=== PATIENT | female | born 1985 | race Caucasian/White ===

== ENCOUNTER 2018-09-11 23:26 | Emergency (ER) | payer OTHER ==
[~2018-09-11] VITALS: Ht 162.6 cm; Wt 77.1 kg
[2018-09-11] MEDS ORDERED: CEPHALEXIN500 MG ORAL (23:51)
[2018-09-11 23:55] VITALS: BP 121/83
--- NOTE | 2018-09-11 23:55 | NUR ---
ER DISCHARGE NOTE: Patient is cleared to be discharged per ERMD, pt is aox4, on room air, with stable vital signs. pt was given dc and prescription instructions, pt was able to verbalize understanding, pt id band removed without complications. pt is able to ambulate with steady gait. pt took all belongings.
--- NOTE | 2018-09-12 02:35 | Emergency Room Report ---
History of Present Illness General Chief Complaint: Upper Extremity Injury Source: Patient Present Illness HPI 32-year-old female presents ED for evaluation. States that 2 months ago she got a tattoo on her left wrist and has been having pain since. States there is bluish discoloration surrounding the tattoo. Pain is dull, 5 out of 10, nonradiating. Denies fevers or chills. Denies any discharge. Denies any swelling. No other aggravating relieving factors. Denies any other associated symptoms Allergies: Uncoded Allergies: PENICILLIN (Allergy, Unknown, 09/11/18) Patient History Past Medical History: none Past Surgical History: none Pertinent Family History: none Social History: Denies: smoking, alcohol use, drug use Last Menstrual Period: 09/07/18 Now: No Immunizations: UTD Reviewed Nursing Documentation: PMH: Agreed; PSxH: Agreed Review of Systems All Other Systems: negative except mentioned in HPI Physical Exam Vital Signs Date Time Temp Pulse Resp B/P (MAP) Pulse Ox O2 Delivery O2 Flow Rate FiO2 09/11/18 23:29 97.9 79 18 121/83 (96) 95 Room Air Sp02 EP Interpretation: reviewed, normal General Appearance: no apparent distress, alert, GCS 15, non-toxic Head: normocephalic Eyes: bilateral eye normal inspection, bilateral eye PERRL ENT: normal ENT inspection Neck: normal inspection Respiratory: normal inspection Cardiovascular #1: normal inspection Gastrointestinal: normal inspection Rectal: deferred Genitourinary: no CVA tenderness Musculoskeletal: normal inspection Neurologic: alert, oriented x3, responsive, motor strength/tone normal, sensory intact, speech normal Psychiatric: normal inspection Skin: other - tattoo volar aspect L wrist, surrounding bluish discoloration noted. no erythema/induration. no fluctance or discharge Lymphatic: normal inspection Medical Decision Making Diagnostic Impression: Primary Impression: Bluish skin discoloration ER Course Hospital Course 32-year-old female presents to ED with pain to tattoo site Differential diagnoses include: Cellulitis, dermatitis, abscess Clinical course Patient placed on stretcher. After initial history, physical exam reveals a young female in no acute distress. On exam there tattooed to the volar aspect of the left wrist. There is surrounding blue discoloration noted. No erythema or induration. No fluctuance. discussed with patient. Concern for possible ink intrusion into the skin outside of the tattoo. it appears to be localized. Will discharge with antibiotics. Recommend evaluation by dermatology as outpatient. Diagnosis - bluish skin discoloration stable and discharged to home with prescription for keflex. Instructed to followup with PMD/dermatology. Instructed return to ED if symptoms recur or worsen Last Vital Signs Date Time Temp Pulse Resp B/P (MAP) Pulse Ox O2 Delivery O2 Flow Rate FiO2 09/11/18 23:55 97.9 18 121/83 95 Room Air 09/11/18 23:29 79 Status: improved Disposition: HOME, SELF-CARE Condition: Stable Scripts Cephalexin* (KEFLEX*) 500 Mg Capsule 500 MG ORAL EVERY 6 HOURS for 7 Days, CAP Prov: Fran Marshall MD 09/11/18 Referrals: Lorri DALLAS,REFERRING (PCP) Patient Instructions: Cellulitis, [id number] Additional Instructions: you need to be evaluated by dermatology Fran Marshall MD Sep 12, 2018 02:35
== END 2018-09-11 23:55 | disposition home or self-care (01) ==
LOC: EMR 23:48
DX: L81.9 Disorder of pigmentation, unspecified (principal)
CPT/HCPCS: 99282

== ENCOUNTER 2020-03-29 16:47 | Emergency (ER) | payer OTHER ==
[~2020-03-29] VITALS: Ht 162.6 cm; Wt 68.9 kg
[~2020-03-29 16:47] MED LIST: CEPHALEXIN500 MG ORAL
--- NOTE | 2020-03-29 17:35 | NUR ---
ED Nurse Note: pt with bedside abd us being done. pt with urine obtained and sent to lab pt remains as in triage without pain.
--- NOTE | 2020-03-29 17:50 | Emergency Room Report ---
History of Present Illness General Chief Complaint: Complications Source: Patient Present Illness HPI 34-year-old female with no significant past medical history who is a G4, P3 here complaining of 2 days of abdominal cramping and vaginal spotting. Patient reports that she was diagnosed with UTI few days ago Take antibiotic however does not recall the name. Reports that she only sees blood when she wipes. Denies any nausea vomiting at this time however reports that she has been nauseated since having a prior . Patient reports that she has a hard time taking the antibiotics at this time due to nausea and throwing up. Denies chest pain, shortness of breath, URI symptoms. Patient has had virtual meeting with WINE BLENDER however has not yet had ultrasound of the abdomen. Appears to be stable state vital signs per denies fever and chills. Denies tobacco smoke, drug use, no other past medical history. Allergies: Uncoded Allergies: PENICILLIN (Allergy, Unknown, 09/11/18) COVID-19 Screening Contact w/high risk pt: No Experienced COVID-19 symptoms?: No COVID-19 Testing performed [place] HAND: No Patient History Past Medical History: see triage record Past Surgical History: none Pertinent Family History: none Last Menstrual Period: 8 weeks Now: Yes : 4 Para: 3 Immunizations: UTD Reviewed Nursing Documentation: PMH: Agreed; PSxH: Agreed Nursing Documentation-PMH Past Medical History: No Stated History Review of Systems All Other Systems: negative except mentioned in HPI Physical Exam Vital Signs Date Time Temp Pulse Resp B/P (MAP) Pulse Ox O2 Delivery O2 Flow Rate FiO2 03/29/20 17:12 98.4 90 16 119/66 (83) 97 Room Air Sp02 EP Interpretation: reviewed, normal General Appearance: no apparent distress, alert, GCS 15, non-toxic Head: normocephalic, atraumatic Eyes: bilateral eye normal inspection, bilateral eye PERRL ENT: no angioedema Neck: supple, no meningismus Respiratory: no respiratory distress, no retraction, no accessory muscle use Cardiovascular #1: no edema, no gallop, no murmur Gastrointestinal: non tender, soft, no mass, no organomegaly, no peritonitis, no bruit Rectal: deferred Genitourinary: no CVA tenderness Musculoskeletal: back normal Neurologic: alert, motor strength/tone normal, oriented x3, sensory intact, responsive, speech normal Psychiatric: judgement/insight normal, memory normal, mood/affect normal, no suicidal/homicidal ideation Skin: no rash Lymphatic: no adenopathy Medical Decision Making PA Attestation All my diagnosis and treatment plans were reviewed ad discussed with my supervising physician Dr. Marshall Diagnostic Impression: Primary Impression: Subchorionic hemorrhage in first trimester Additional Impressions: Abdominal pain during UTI (urinary tract infection) during ER Course 34-year-old female with no significant past medical history who is a G4, P3 here complaining of 2 days of abdominal cramping and vaginal spotting. Patient reports that she was diagnosed with UTI few days ago Take antibiotic however does not recall the name. Reports that she only sees blood when she wipes. Denies any nausea vomiting at this time however reports that she has been nauseated since having a prior . Patient reports that she has a hard time taking the antibiotics at this time due to nausea and throwing up. Denies chest pain, shortness of breath, URI symptoms. Patient has had virtual meeting with WINE BLENDER however has not yet had ultrasound of the abdomen. Appears to be stable state vital signs per denies fever and chills. Denies tobacco smoke, drug use, no other past medical history. Ddx considered but are not limited to: Ectopic , threatened , spontaneous , abdominal pain during , vaginal bleeding during , UTI during , pyelonephritis during , urinary incont inence, prolapsed bladder Vital signs: are WNL, pt. is afebrile H&PE are most consistent with: Subchorionic hemorrhage first trimester, abdominal pain during , UTI during ORDERS: UA, urine cx, hCG quantitative, type and screen, CBC, CMP, OB ultrasound, Diclegis,Keflex ED INTERVENTIONS: None required at this time. DISCHARGE: At this time pt. is stable for d/c to home. Will provide printed patient care instructions, and any necessary prescriptions. Care plan and follow up instructions have been discussed with the patient prior to discharge. Take medication as directed, follow-up with WINE BLENDER in 24 to 48 hours, if worsening symptoms return to the emergency room CT/MRI/US Diagnostic Results CT/MRI/US Diagnostic Results : Imaging Test Ordered: OB US Impression COMPARISON: None FINDINGS: Uterus: Gestational sac identified within the endometrial cavity, measuring approximately 3.1 cm. Prominent subchorionic hemorrhage. An embryonic pole is identified. [place]-rump length measures 1.5 cm. heart rate is 176 bpm. Cervix is long and closed. Placenta/amniotic fluid: Cannot be adequately evaluated due to the early gestational age. Ovaries: The right ovary measures 2.4 x 1.9 x 2.3 cm. Corpus luteum in the right ovary. The left ovary measures 2.4 x 1.5 x 2.4 cm. The ovaries demonstrate normal color flow. Other: No free fluid is identified. No adnexal mass. LMP: 01/30/2020 GA by LMP: 8 weeks 3 days ALISON by LMP: 11/05/2020 Average ultrasound age: 7 weeks 5 days ALISON by ultrasound: 11/10/2020 IMPRESSION: 1. Single intrauterine with heart rate of 176 bpm. 2. Probable prominent subchorionic hemorrhage. Last Vital Signs Date Time Temp Pulse Resp B/P (MAP) Pulse Ox O2 Delivery O2 Flow Rate FiO2 03/29/20 17:12 98.4 90 16 119/66 (83) 97 Room Air Disposition: HOME, SELF-CARE Condition: Stable Referrals: [facility]ERR[facility] (PCP) Patient Instructions: Abdominal Pain During , [id number], and Urinary Tract Infection Additional Instructions: Take medication as directed, follow-up with WINE BLENDER in 24 to 48 hours, if worsening symptoms return to the emergency room Leeann Boone Mar 29, 2020 17:50
[2020-03-29 18:34] LABS: APPEARANCE,URINE SLIGHTLY CLOUDY; BASOPHILS % (AUTO) 1.5 % (0.0-2.0); BILIRUBIN, URINE NEGATIVE (NEGATIVE); EOSINOPHILS % (AUTO) 0.4 % (0.0-3.0); GLUCOSE, URINE (UA) NEGATIVE (NEGATIVE); HEMATOCRIT 42.6 % (37.0-47.0); KETONES,URINE 1+ (NEGATIVE); LEUKOCYTE ESTERASE ,URINE NEGATIVE (NEGATIVE); LYMPHOCYTES % (AUTO) 22.5 % (20.0-45.0); MEAN CORPUSCULAR VOLUME 93 FL (80-99); MONOCYTES % (AUTO) 6.5 % (1.0-10.0); NEUTROPHILS % (AUTO) 69.1 % (45.0-75.0); NITRITE,URINE NEGATIVE (NEGATIVE); PH,URINE 5 (4.5-8.0); PLATELET COUNT 353 K/UL (150-450); PROTEIN,URINE 1+ (NEGATIVE); RED BLOOD COUNT 4.58 M/UL (4.20-5.40); RED CELL DISTRIBUTION WIDTH 11.7 % (11.6-14.8); UROBILINOGEN,URINE NORMAL MG/DL (0.0-1.0); WHITE BLOOD COUNT 10.8 K/UL (4.8-10.8)
[2020-03-29 18:35] LABS: COLOR,URINE YELLOW
--- NOTE | 2020-03-29 18:36 | Diagnostic Imaging Report ---
EXAM: US First Trimester , Transabdominal CLINICAL HISTORY: 34-year-old female with no significant past medical history who is a G4, P3 here complaining of 2 days of abdominal cramping and vaginal spotting. Patient reports that she was diagnosed with UTI few days ago Take antibiotic however does not recall the name. Reports that she only sees blood when she wipes. Denies any nausea vomiting at this time however reports that she has been nauseated since having a prior . Patient reports that she has a hard time taking the antibiotics at this time due to nausea and throwing up. Denies chest pain, shortness of breath, URI symptoms. Patient has had virtual meeting with ACCOUNTS PAYABLE OR RECEIVABLE CLERK however has not yet had ultrasound of the abdomen. Appears to be stable state vital signs per denies fever and chills. Denies tobacco smoke, drug use, no other past medical history. TECHNIQUE: Real-time transabdominal obstetrical ultrasound of the maternal pelvis and a first trimester with image documentation. COMPARISON: None FINDINGS: Uterus: Gestational sac identified within the endometrial cavity, measuring approximately 3.1 cm. Prominent subchorionic hemorrhage. An embryonic pole is identified. [place]-rump length measures 1.5 cm. heart rate is 176 bpm. Cervix is long and closed. Placenta/amniotic fluid: Cannot be adequately evaluated due to the early gestational age. Ovaries: The right ovary measures 2.4 x 1.9 x 2.3 cm. Corpus luteum in the right ovary. The left ovary measures 2.4 x 1.5 x 2.4 cm. The ovaries demonstrate normal color flow. Other: No free fluid is identified. No adnexal mass. LMP: 01/30/2020 GA by LMP: 8 weeks 3 days ALISON by LMP: 11/05/2020 Average ultrasound age: 7 weeks 5 days ALISON by ultrasound: 11/10/2020 IMPRESSION: 1. Single intrauterine with heart rate of 176 bpm. 2. Probable prominent subchorionic hemorrhage.
--- NOTE | 2020-03-29 18:43 | NUR ---
ED Nurse Note: pt tolerates us well. labs drawn and pending. pt without further vaginal spotting per pt. no pain. aware awaiting lab results for aci
[2020-03-29 18:47] LABS: ANION GAP 8 mmol/L (5-15); BLOOD UREA NITROGEN 7 mg/dL (7-18); CARBON DIOXIDE 26 MMOL/L (21-32); CHLORIDE 103 MMOL/L (98-107); CREATININE 0.6 MG/DL (0.55-1.30); POTASSIUM 3.8 MMOL/L (3.5-5.1); SODIUM 137 MMOL/L (136-145)
[2020-03-29 18:51] LABS: ALANINE AMINOTRANSFERASE 21 U/L (12-78); ALBUMIN 3.9 G/DL (3.4-5.0); ALBUMIN/GLOBULIN RATIO 0.9 (1.0-2.7); ALKALINE PHOSPHATASE 75 U/L (46-116); ASPARTATE AMINO TRANSFERASE 28 U/L (15-37); BILIRUBIN,TOTAL 0.5 MG/DL (0.2-1.0)
[2020-03-29] MEDS ORDERED: DICLEGIS DR 101 EACH PO (18:59)
[2020-03-29] MEDS ORDERED: CEPHALEXIN500 MG ORAL (18:59)
[2020-03-29 19:30] VITALS: BP 123/72
--- NOTE | 2020-03-29 19:30 | NUR ---
ER DISCHARGE NOTE: Patient is cleared to be discharged per ERMD, pt is aox4, on room air, with stable vital signs. pt was given dc and prescription instructions, pt was able to verbalize understanding, pt id band and iv site removed without complications. pt is able to ambulate with steady gait. pt took all belongings.
== END 2020-03-29 19:30 | disposition home or self-care (01) ==
LOC: EMR 17:00
DX: O20.9 Hemorrhage in early pregnancy, unspecified (principal); O23.41 Unspecified infection of urinary tract in pregnancy, first trimester; O26.891 Other specified pregnancy related conditions, first trimester; R10.9 Unspecified abdominal pain; Z3A.01 Less than 8 weeks gestation of pregnancy; Z88.0 Allergy status to penicillin
CPT/HCPCS: 36415; 76801; 76817; 80053; 81003; 84702; 85025; 86850; 86900; 86901; Z7502; 99284

== ENCOUNTER 2020-04-15 21:18 | Emergency (ER) | payer OTHER ==
[~2020-04-15] VITALS: Ht 162.6 cm; Wt 69.9 kg
[~2020-04-15 21:18] MED LIST changes: +DICLEGIS DR 101 EACH PO
--- NOTE | 2020-04-15 21:35 | NUR ---
ED Nurse Note: patient arrived ambulatory, complaints of epigastric pain, vomitting and nasuea, patiient is AOx3, vitals are stable, patient is calm no current complaints
--- NOTE | 2020-04-15 21:50 | NUR ---
urine and blood work collected and sent to lab
[2020-04-15 22:04] VITALS: BP 109/77
[2020-04-15 22:13] LABS: BASOPHILS % (AUTO) 0.9 % (0.0-2.0); EOSINOPHILS % (AUTO) 0.1 % (0.0-3.0); HEMOGLOBIN 14.7 G/DL (12.0-16.0); LYMPHOCYTES % (AUTO) 16.1 % (20.0-45.0); MEAN CORPUSCULAR VOLUME 89 FL (80-99); MONOCYTES % (AUTO) 8.2 % (1.0-10.0); NEUTROPHILS % (AUTO) 74.7 % (45.0-75.0); PLATELET COUNT 204 K/UL (150-450); RED BLOOD COUNT 4.61 M/UL (4.20-5.40); RED CELL DISTRIBUTION WIDTH 11.9 % (11.6-14.8); WHITE BLOOD COUNT 5.6 K/UL (4.8-10.8)
[2020-04-15 22:15] LABS: APPEARANCE,URINE SLIGHTLY CLOUDY; BILIRUBIN, URINE NEGATIVE (NEGATIVE); GLUCOSE, URINE (UA) NEGATIVE (NEGATIVE); KETONES,URINE 1+ (NEGATIVE); LEUKOCYTE ESTERASE ,URINE 1+ (NEGATIVE); NITRITE,URINE NEGATIVE (NEGATIVE); PH,URINE 6 (4.5-8.0); PROTEIN,URINE 2+ (NEGATIVE); UROBILINOGEN,URINE 1 MG/DL (0.0-1.0)
[2020-04-15] MEDS ORDERED: D5NS 1,000 ML IV SCH (22:15)
[2020-04-15 22:16] LABS: COLOR,URINE YELLOW
[2020-04-15 22:34] LABS: ANION GAP 10 mmol/L (5-15); BLOOD UREA NITROGEN 11 mg/dL (7-18); CALCIUM 8.3 MG/DL (8.5-10.1); CARBON DIOXIDE 26 MMOL/L (21-32); CHLORIDE 100 MMOL/L (98-107); CREATININE 0.8 MG/DL (0.55-1.30); POTASSIUM 3.1 MMOL/L (3.5-5.1); SODIUM 136 MMOL/L (136-145)
[2020-04-15 22:38] LABS: ALANINE AMINOTRANSFERASE 55 U/L (12-78); ALBUMIN 3.7 G/DL (3.4-5.0); ALBUMIN/GLOBULIN RATIO 0.8 (1.0-2.7); ALKALINE PHOSPHATASE 80 U/L (46-116); ASPARTATE AMINO TRANSFERASE 39 U/L (15-37); BILIRUBIN,TOTAL 0.3 MG/DL (0.2-1.0)
--- NOTE | 2020-04-15 23:00 | Diagnostic Imaging Report ---
EXAM: US First Trimester , Transabdominal and Transvaginal CLINICAL HISTORY: ABD PAIN TECHNIQUE: Real-time transabdominal and transvaginal obstetrical ultrasound of the maternal pelvis and a first trimester with image documentation. Transvaginal imaging was used for better evaluation of the fetus and adnexa. COMPARISON: 03/29/20 FINDINGS: Single living intrauterine with a mean gestational age by ultrasound of 11 weeks 0 days. Heart rate 1 74 bpm. Negative for ovarian torsion on the left. The right ovary was not visualized. At least a small amount of subchorionic hemorrhage posteriorly. This should be evaluated on follow-up study.
[2020-04-15] MEDS ORDERED: ZOFRAN4 MG ORAL (23:29)
--- NOTE | 2020-04-15 23:29 | Emergency Room Report ---
History of Present Illness General Chief Complaint: Vomiting Source: Patient Present Illness Allergies: Uncoded Allergies: PENICILLIN (Allergy, Unknown, 09/11/18) COVID-19 Screening Contact w/high risk pt: No Experienced COVID-19 symptoms?: No COVID-19 Testing performed CUSTOMER EQUIPMENT ENGINEER: No Patient History Now: Yes : 5 Para: 4 Nursing Documentation-PMH Past Medical History: No Stated History Physical Exam Vital Signs Date Time Temp Pulse Resp B/P (MAP) Pulse Ox O2 Delivery O2 Flow Rate FiO2 04/15/20 21:25 98.6 78 20 109/77 (88) 95 Room Air Medical Decision Making Diagnostic Impression: Primary Impression: Hyperemesis gravidarum ER Course Patient presents with symptom consistent with hyperemesis gravidarum. She only has 1+ ketones in her urine. No evidence of ectopic or torsion. This subchorionic bleeding is much improved. Patient felt better now. Will discharge home. Last Vital Signs Date Time Temp Pulse Resp B/P (MAP) Pulse Ox O2 Delivery O2 Flow Rate FiO2 04/15/20 22:04 98.6 16 109/77 95 Room Air 04/15/20 22:04 66 Status: improved Disposition: HOME, SELF-CARE Condition: Stable Scripts Ondansetron (Zofran) 4 Mg Tablet 4 MG ORAL Q6H PRN for Nausea & Vomiting, #30 TAB 0 Refills Prov: Erlin Tavarez MD 04/15/20 Referrals: [facility]ERR[facility] (PCP) Additional Instructions: Increase fluids. Follow-up with your INTERNAL MEDICINE PHYSICIAN ASSISTANT in a week. Return if symptoms worsen. Erlin Tavarez MD Apr 15, 2020 23:29
[2020-04-16 00:14] VITALS: BP 118/78
== END 2020-04-16 00:08 | disposition home or self-care (01) ==
LOC: EMR 21:58
DX: O21.0 Mild hyperemesis gravidarum (principal); Z3A.11 11 weeks gestation of pregnancy; Z88.0 Allergy status to penicillin
CPT/HCPCS: 36415; 76801; 76817; 80053; 81003; 81025; 83690; 84702; 85025; 96361; 96365; 96375; J2405; J7030; S0028; Z7502; 99284

== ENCOUNTER 2020-05-02 21:14 | Emergency (ER) | payer OTHER ==
[~2020-05-02] VITALS: Ht 162.6 cm; Wt 68.0 kg
[~2020-05-02 21:14] MED LIST changes: +ZOFRAN4 MG ORAL
--- NOTE | 2020-05-02 21:33 | NUR ---
ED Nurse Note: pt walked into ED due to vaginal bleeding bright red after sexual intercourse 30 min before arrival. pt stated; its not bleeding anymore. Pt reports she is 13 weeks and 2 days. vitals are stable.
[2020-05-02 21:36] VITALS: BP 125/76
--- NOTE | 2020-05-02 22:06 | Emergency Room Report ---
History of Present Illness General Chief Complaint: Female Urogenital Problems Source: Patient (Fran Marshall MD) Present Illness HPI 34-year-old female presents to ED for evaluation. States she is 13 weeks confirmed by ultrasound. States she started bleeding today after having sex. Pain and cramping. Denies nausea or vomiting. No other aggravating relieving factors. Denies any other associated symptoms (Fran Marshall MD) Allergies: Coded Allergies: PENICILLINS (Verified Allergy, Unknown, 05/02/20) COVID-19 Screening Contact w/high risk pt: No Experienced COVID-19 symptoms?: No COVID-19 Testing performed LEATHER CARTRIDGE BELT MAKER: No (Fran Marshall MD) Patient History Past Medical History: none Past Surgical History: none Pertinent Family History: none Social History: Denies: smoking, alcohol use, drug use Last Menstrual Period: Jan 30, 2020 Now: Yes : 4 Para: 3 Immunizations: UTD Reviewed Nursing Documentation: PMH: Agreed; PSxH: Agreed (Fran Marshall MD) Nursing Documentation-PMH Past Medical History: No Stated History (Fran Marshall MD) Review of Systems All Other Systems: negative except mentioned in HPI (Fran Marshall MD) Physical Exam Vital Signs Date Time Temp Pulse Resp B/P (MAP) Pulse Ox O2 Delivery O2 Flow Rate FiO2 05/02/20 21:19 97.2 95 18 127/75 (92) 96 Room Air Sp02 EP Interpretation: reviewed, normal General Appearance: no apparent distress, alert, GCS 15, non-toxic Head: normocephalic, atraumatic Eyes: bilateral eye normal inspection, bilateral eye PERRL ENT: hearing grossly normal, normal pharynx, no angioedema, normal voice Neck: full range of motion, supple/symm/no masses Respiratory: chest non-tender, lungs clear, normal breath sounds, speaking full sentences Cardiovascular #1: regular rate, rhythm, no edema Cardiovascular #2: 2+ carotid (R), 2+ carotid (L), 2+ radial (R), 2+ radial (L), 2+ dorsalis pedis (R), 2+ dorsalis pedis (L) Gastrointestinal: normal bowel sounds, non tender, soft, non-distended, no guarding, no rebound Rectal: deferred Genitourinary: normal inspection, no CVA tenderness Musculoskeletal: back normal, normal range of motion, gait/station normal, non- tender Neurologic: alert, motor strength/tone normal, oriented x3, sensory intact, responsive, speech normal Psychiatric: judgement/insight normal, memory normal, mood/affect normal, no suicidal/homicidal ideation Reflexes: 3+ bicep (R), 3+ bicep (L), 3+ tricep (R), 3+ tricep (L), 3+ knee (R), 3+ knee (L) Lymphatic: no adenopathy (Fran Marshall MD) Medical Decision Making Diagnostic Impression: Primary Impression: Threatened miscarriage in early Additional Impression: Subchorionic hemorrhage in first trimester Qualified Codes: O41.8X10 - Other specified disorders of amniotic fluid and membranes, first trimester, not applicable or unspecified; O46.8X1 - Other antepartum hemorrhage, first trimester ER Course This patient was signed out to me. She presents with vaginal spotting. She still have small amount of subchorionic bleeding. She also has an anterior placenta. This may be causing the problem. No evidence of distress or demise. No evidence of infection. Will discharge home. (Erlin Tavarez MD) CT/MRI/US Diagnostic Results CT/MRI/US Diagnostic Results : Imaging Test Ordered: Transabdominal OB ultrasound Impression Read by radiologist. Single live IUP at 13 weeks. Small subchorionic bleed. Good heart beat. (Erlin Tavraez MD) Last Vital Signs Date Time Temp Pulse Resp B/P (MAP) Pulse Ox O2 Delivery O2 Flow Rate FiO2 05/02/20 21:36 97.5 79 17 125/76 97 Room Air (Fran Marshall MD) Status: improved (Erlin Tavarez MD) Disposition: HOME, SELF-CARE Condition: Stable Referrals: [facility] (PCP) Additional Instructions: Follow-up with your SYSTEMS SOFTWARE SPECIALIST doctor in 7 days. Return if symptoms worsen. Fran Marshall MD May 02, 2020 22:06 Erlin Tavarez MD May 02, 2020 22:41
[2020-05-02 22:14] LABS: BASOPHILS % (AUTO) 1.1 % (0.0-2.0); HEMATOCRIT 36.5 % (37.0-47.0); HEMOGLOBIN 12.3 G/DL (12.0-16.0); LYMPHOCYTES % (AUTO) 18.1 % (20.0-45.0); MEAN CORPUSCULAR VOLUME 93 FL (80-99); MONOCYTES % (AUTO) 6.9 % (1.0-10.0); NEUTROPHILS % (AUTO) 73.9 % (45.0-75.0); PLATELET COUNT 331 K/UL (150-450); RED BLOOD COUNT 3.92 M/UL (4.20-5.40); RED CELL DISTRIBUTION WIDTH 12.1 % (11.6-14.8); WHITE BLOOD COUNT 11.3 K/UL (4.8-10.8)
[2020-05-02 22:21] LABS: APPEARANCE,URINE SLIGHTLY CLOUDY; BILIRUBIN, URINE NEGATIVE (NEGATIVE); COLOR,URINE PALE YELLOW; GLUCOSE, URINE (UA) NEGATIVE (NEGATIVE); KETONES,URINE 1+ (NEGATIVE); LEUKOCYTE ESTERASE ,URINE 1+ (NEGATIVE); NITRITE,URINE NEGATIVE (NEGATIVE); PH,URINE 5 (4.5-8.0); PROTEIN,URINE 1+ (NEGATIVE); UROBILINOGEN,URINE NORMAL MG/DL (0.0-1.0)
[2020-05-02 22:25] LABS: ANION GAP 8 mmol/L (5-15); BLOOD UREA NITROGEN 9 mg/dL (7-18); CALCIUM 8.5 MG/DL (8.5-10.1); CARBON DIOXIDE 24 MMOL/L (21-32); CHLORIDE 105 MMOL/L (98-107); CREATININE 0.6 MG/DL (0.55-1.30); POTASSIUM 3.5 MMOL/L (3.5-5.1); SODIUM 136 MMOL/L (136-145)
[2020-05-02 22:29] LABS: ALANINE AMINOTRANSFERASE 57 U/L (12-78); ALBUMIN 3.2 G/DL (3.4-5.0); ALBUMIN/GLOBULIN RATIO 0.8 (1.0-2.7); ALKALINE PHOSPHATASE 73 U/L (46-116); ASPARTATE AMINO TRANSFERASE 31 U/L (15-37); BILIRUBIN,TOTAL 0.4 MG/DL (0.2-1.0)
[2020-05-02 22:45] VITALS: BP 128/79
--- NOTE | 2020-05-02 22:45 | NUR ---
ER DISCHARGE NOTE: Patient is cleared to be discharged per ERMD, pt is aox4, on room air, with stable vital signs. pt was given dc instructions, pt was able to verbalize understanding, pt id band removed without complications. pt is able to ambulate with steady gait. pt took all belongings.
--- NOTE | 2020-05-02 22:49 | Diagnostic Imaging Report ---
EXAM: US First Trimester , Transabdominal CLINICAL HISTORY: ABD PAIN TECHNIQUE: Real-time transabdominal obstetrical ultrasound of the maternal pelvis and a first trimester with image documentation. COMPARISON: 04/15/2020 FINDINGS: Gestation: Single living intrauterine with an estimated gestational age of 13 weeks and 3 days. heart rate 170 bpm. Uterus/cervix: Unremarkable. No myometrial mass. Ovaries: Ovaries and adnexa were not imaged on this study. Free fluid: No free fluid. IMPRESSION: Single living intrauterine with an estimated gestational age of 13 weeks and 3 days. No acute abnormality.
== END 2020-05-02 22:45 | disposition home or self-care (01) ==
LOC: EMR 21:45
DX: O26.851 Spotting complicating pregnancy, first trimester (principal); Z3A.13 13 weeks gestation of pregnancy; Z88.0 Allergy status to penicillin; O41.8X10 Other specified disorders of amniotic fluid and membranes, first trimester, not applicable or unspecified; O46.8X1 Other antepartum hemorrhage, first trimester
CPT/HCPCS: 36415; 76801; 80053; 81003; 81025; 83690; 85025; Z7502; 99283